=== PATIENT | female | born 2000 | race Caucasian/White ===

== ENCOUNTER → 2021-10-18 10:14 | Outpatient (CLI) | payer OTHER, SELFPAY ==
[2021-10-18 11:42] LABS: Appearance Urine UA CLEAR; Bilirubin Urine UA NEGATIVE (NEGATIVE); Color Urine UA YELLOW; Glucose Urine UA NEGATIVE (Negative); Ketones Urine UA NEGATIVE (NEGATIVE); Leukocyte Esterase Urine UA TRACE (NEGATIVE); Nitrite Urine UA NEGATIVE (Negative); Occult Blood Urine UA NEGATIVE (Negative); Protein Urine UA NEGATIVE (Negative); Urobilinogen Urine UA 0.2 E.U./dL (0.2)
[2021-10-18 11:44] LABS: pH Urine UA 6.5 (4.5-8.0)
[2021-10-18 11:47] LABS: Bacteria Urine None Seen; RBC Urine 0-1/HPF (0-5/HPF); Squamous Epithelial Cell Urine 1-5 /HPF (0-5/HPF); WBC Urine 1-5/HPF (0-5/HPF)
[2021-10-18 12:11] LABS: Add Manual Diff / Slide Review NO; Basophils Absolute Auto 0 /uL (0-100); Basophils Percent Auto 0.3 % (0-2); Eosinophils Absolute Auto 0 /uL (0-450); Eosinophils Percent Auto 0.7 % (2-4); Hematocrit 36.4 % (36-46); Hemoglobin 12.4 g/dL (12.0-16.0); Lymphocytes Absolute Auto 1600 /uL (1100-4500); Lymphocytes Percent Auto 26.7 % (25-40); Mean Corpuscular HGB Conc 34.1 % (30-36); Mean Corpuscular Hemoglobin 29.2 PG (26-34); Mean Corpuscular Volume 85.7 fL (80-100); Monocytes Absolute Auto 400 /uL (0-900); Monocytes Percent Auto 7.5 % (3-14); Neutrophils Absolute Auto 3900 /uL (1500-7000); Neutrophils Percent Auto 64.8 % (50-75); Platelet Count 216 X10^3/uL (150-400); Red Blood Cell Count 4.24 X10^6/uL (4.0-5.2)
[2021-10-18 13:10] LABS: Urine N gonorrhoeae NOT DETECTED
[2021-10-18 13:18] LABS: Urine Chlamydia NOT DETECTED
[2021-10-18 14:59] LABS: Urine N gonorrhoeae NOT DETECTED
[2021-10-18 16:13] LABS: Hepatitis B Surface Antigen NEGATIVE s/c (NEGATIVE); Rubella Antibody IgG 22.9 IU/mL (>15)
[2021-10-18 16:22] LABS: HIV 1 & 2 Ab/Ag 4th Gen Combo NEGATIVE (NEGATIVE); Hep C Virus Ab w/Reflex Quant NEGATIVE s/c (NEGATIVE)
[2021-10-18 16:42] LABS: Urine Chlamydia NOT DETECTED
[2021-10-19 04:51] LABS: RPR Screen Non Reactive (Non Reactive)
[2021-10-19 07:36] LABS: Varicella IgG Antibody 1168 index (Immune >165)
== END ==
PROVIDERS: Referring Provider Family Medicine; Visit Provider Family Medicine
DX: Z34.91 Encounter for supervision of normal pregnancy, unspecified, first trimester (principal); Z11.3 Encounter for screening for infections with a predominantly sexual mode of transmission; Z11.8 Encounter for screening for other infectious and parasitic diseases; Z3A.11 11 weeks gestation of pregnancy
CPT/HCPCS: 36415; 80055; 81003; 81015; 86787; 86803; 86850; 86900; 86901; 87086; 87389; 87491; 87591

== ENCOUNTER → 2021-11-12 11:05 | Outpatient (CLI) | payer OTHER, SELFPAY ==
[2021-11-12 14:42] LABS: Appearance Urine UA CLEAR; Bilirubin Urine UA NEGATIVE (NEGATIVE); Color Urine UA YELLOW; Glucose Urine UA NEGATIVE (Negative); Ketones Urine UA NEGATIVE (NEGATIVE); Leukocyte Esterase Urine UA TRACE (NEGATIVE); Nitrite Urine UA NEGATIVE (Negative); Occult Blood Urine UA NEGATIVE (Negative); Protein Urine UA NEGATIVE (Negative); Specific Gravity Urine UA <=1.005 (1.000-1.035); Urobilinogen Urine UA 0.2 E.U./dL (0.2)
[2021-11-12 14:50] LABS: pH Urine UA 6.5 (4.5-8.0)
[2021-11-12 14:51] LABS: Bacteria Urine Moderate (10-30); RBC Urine None Seen (0-5/HPF); Squamous Epithelial Cell Urine 1-5 /HPF (0-5/HPF); WBC Urine 0-1/HPF (0-5/HPF)
== END ==
PROVIDERS: Visit Provider Family Medicine
DX: N39.0 Urinary tract infection, site not specified (principal)
CPT/HCPCS: 81001; 87086

== ENCOUNTER → 2021-11-23 09:10 | Outpatient (CLI) | payer OTHER, SELFPAY ==
[2021-11-23 09:34] LABS: Appearance Urine UA CLEAR; Bilirubin Urine UA NEGATIVE (NEGATIVE); Color Urine UA YELLOW; Glucose Urine UA NEGATIVE (Negative); Ketones Urine UA NEGATIVE (NEGATIVE); Leukocyte Esterase Urine UA NEGATIVE (NEGATIVE); Nitrite Urine UA NEGATIVE (Negative); Occult Blood Urine UA NEGATIVE (Negative); Protein Urine UA NEGATIVE (Negative); Specific Gravity Urine UA <=1.005 (1.000-1.035); Urobilinogen Urine UA 0.2 E.U./dL (0.2)
[2021-11-23 09:37] LABS: pH Urine UA 7.5 (4.5-8.0)
[2021-11-23 09:55] LABS: Amorphous Sediment Urine 1+; Bacteria Urine Few (2-10); Culture Indicated Urine Specimen Cultured; RBC Urine None Seen (0-5/HPF); Squamous Epithelial Cell Urine 1-5 /HPF (0-5/HPF); WBC Urine 1-5/HPF (0-5/HPF)
== END ==
PROVIDERS: PCP Student in an Organized Health Care Education/Training Program; Referring Provider Family Medicine; Visit Provider Family Medicine
DX: Z34.01 Encounter for supervision of normal first pregnancy, first trimester (principal)
CPT/HCPCS: 81001; 87086

== ENCOUNTER → 2021-12-20 11:54 | Outpatient (CLI) | payer OTHER, SELFPAY ==
--- NOTE | 2021-12-20 11:55 | DI.US.S_ITS ---
PROCEDURE: US OB >= 14 WEEKS FETUS INDICATIONS: ANATOMY OUTSIDE/PRIOR DATING DATA: Last menstrual period (LMP): 08/02/2021. LMP-based estimated date of delivery (SUKHWINDER): 05/09/2022. First dating scan (date and location): 12/20/2021. Estimated date of delivery (SUKHWINDER) from first dating scan: 05/05/2022. TECHNIQUE: Real-time scanning was performed of the fetus, with image documentation and biometric measurements. Endovaginal scanning: No COMPARISON: None. FINDINGS: General: A single living intrauterine gestation is present. Presentation: Breech. Placenta: Placental position is anterior , without previa. Amniotic fluid index: 10.9 cm, normal range is 5-24 cm. heart rate: 153 beats per minute. Maternal cervical canal: 3.8 cm long. Normal lower limit is 2.5 cm. biometrics: Biparietal diameter: 49 mm; 20 weeks 3 days Head circumference: 187 mm; 21 weeks 0 days Abdominal circumference: 152 mm; 20 weeks 3 days Femur length: 31 mm; 19 weeks 5 days Clinically estimated gestational age: Not applicable Composite gestational age from present scan: 20 weeks 4 days Estimated weight and percentile: 341 g, which is at the 59th percentile for gestational age Anatomic survey: Neuro: Ventricles are non-dilated at less than 10 mm. Cisterna magna is normal at 3-11 mm. Cerebellum is normal in size and morphology. Nuchal skin fold: Normal at less than 6 mm between 14-21 weeks gestational age. Face: Nose and lips, facial profile are normal. Spine: No evidence for spina bifida. Heart: 4-chambered heart is present, with normal ventricular outflow tracts. Diaphragm: Diaphragm is intact. Stomach: Left-sided stomach is present. Kidneys: No hydronephrosis. Normal is less than 5 mm in 2nd trimester, less than 7 mm in 3rd trimester. Cord: 3-vessel cord has orthotopic insertion. Bladder: Normal in size. Extremities: All 4 extremities identified. IMPRESSION: 1. Single living intrauterine gestation. 2. Normal survey of anatomy. We strive to produce accurate, complete, and clear reports of imaging services. To assist us in improving patient care, this report was composed using standard report templates and voice recognition software. Therefore, it may contain abnormal punctuation, insertions and/or omissions. Occasional wrong-word or sound-alike substitutions may occur. Though we review the report and make efforts to correct it, we do recommend that the report be read carefully in proper context to recognize any text inaccuracies. Dictated by: Renetta Thomas M.D. on 12/20/2021 at 15:42 Transcribed by: KOLE on 12/20/2021 at 15:44 Approved by: Renetta Thomas M.D. on 12/20/2021 at 16:30
[2021-12-28 20:07] LABS: AFP, Serum 59.2 ng/mL (.); Estriol, Free 1.43 ng/mL (.); Inhibin A, Dimeric 304.66 pg/mL (.); Inhibin A, MoM 1.55 (.); Maternal Ethnicity Other (.); Maternal Weight 129 lbs (.); Number of Fetuses No (.); OSBR Risk 1 IN 10000 (.); Results Report (.); Test Results *Screen Negative* (.); hCG, MoM 2.52 (.); hCG, Serum 72797 mIU/mL (.)
== END ==
PROVIDERS: PCP Student in an Organized Health Care Education/Training Program; Referring Provider Family Medicine; Visit Provider Family Medicine
DX: O23.42 Unspecified infection of urinary tract in pregnancy, second trimester (principal); N39.0 Urinary tract infection, site not specified; Z3A.20 20 weeks gestation of pregnancy
CPT/HCPCS: 36415; 76811; 82105; 82677; 84702; 86336; 87077; 87086

== ENCOUNTER → 2021-12-20 14:03 | Outpatient (CLI) | payer OTHER, SELFPAY | PROVIDERS: PCP Student in an Organized Health Care Education/Training Program; Visit Provider Family Medicine | DX: N39.0 Urinary tract infection, site not specified (principal) | CPT/HCPCS: 87077; 87086 ==

== ENCOUNTER → 2022-02-16 08:31 | Outpatient (CLI) | payer OTHER, SELFPAY ==
[2022-02-16 11:04] LABS: Hematocrit 32.2 % (36-46); Hemoglobin 11.3 g/dL (12.0-16.0)
[2022-02-16 11:40] LABS: GTT (PREG) 1 Hour PP 50gm Dose 91 mg/dL (76-139)
== END ==
PROVIDERS: PCP Student in an Organized Health Care Education/Training Program; Referring Provider Family Medicine; Visit Provider Family Medicine
DX: Z34.92 Encounter for supervision of normal pregnancy, unspecified, second trimester (principal); Z3A.24 24 weeks gestation of pregnancy
CPT/HCPCS: 36415; 82950; 85014; 85018; 86850

== ENCOUNTER → 2022-02-28 13:37 | Outpatient (CLI) | payer OTHER, SELFPAY | PROVIDERS: PCP Student in an Organized Health Care Education/Training Program; Visit Provider Family Medicine | DX: N89.8 Other specified noninflammatory disorders of vagina (principal) | CPT/HCPCS: 87210 ==

== ENCOUNTER 2022-03-17 09:30 | Emergency (ER) | payer OTHER, SELFPAY ==
[2022-03-17] VITALS (11 sets, daily range): BP systolic 111–139; BP diastolic 57–79; PULSE 76–104; RESP 15; TEMP 36.4; O2SAT 98–100; BMI 26.7
[2022-03-17 10:00] LABS: Add Manual Diff / Slide Review NO; Basophils Absolute Auto 0 /uL (0-100); Basophils Percent Auto 0.3 % (0-2); Eosinophils Absolute Auto 0 /uL (0-450); Eosinophils Percent Auto 0.7 % (2-4); Hematocrit 33.7 % (36-46); Hemoglobin 11.5 g/dL (12.0-16.0); Lymphocytes Absolute Auto 1600 /uL (1100-4500); Lymphocytes Percent Auto 22.2 % (25-40); Mean Corpuscular HGB Conc 34.1 % (30-36); Mean Corpuscular Hemoglobin 29.6 PG (26-34); Mean Corpuscular Volume 86.6 fL (80-100); Monocytes Absolute Auto 400 /uL (0-900); Monocytes Percent Auto 5.8 % (3-14); Neutrophils Absolute Auto 5200 /uL (1500-7000); Platelet Count 169 X10^3/uL (150-400); Red Blood Cell Count 3.89 X10^6/uL (4.0-5.2); Red Cell Distribution Width 12.6 % (11.6-14.8); White Blood Cell Count 7.4 X10^3/uL (4.5-11.0)
[2022-03-17 10:09] LABS: Alanine Aminotransferase 25 IU/L (<35); Albumin 3.6 g/dL (3.5-5.0); Alkaline Phosphatase 150 U/L (38-126); Aspartate Aminotransferase 31 IU/L (14-36); BUN Creatinine Ratio 12.2 (6-22); Bilirubin Total 0.3 mg/dL (0.2-1.3); Blood Urea Nitrogen 6 mg/dL (7-17); Calcium 8.8 mg/dL (8.4-10.2); Carbon Dioxide 21 mmol/L (22-32); Chloride 105 mmol/L (98-107); Estimated Glomerular Filt Rate > 60 mL/min (>60); Globulin 3.5 g/dL (1.7-4.1); Glucose 107 mg/dL (70-100); HEMOLYSIS < 15 (0-50); Lipase 124 U/L (23-300); Potassium 3.5 mmol/L (3.4-5.1); Sodium 136 mmol/L (137-145); Total Protein 7.1 g/dL (6.3-8.2)
--- NOTE | 2022-03-17 10:17 | ED.DIZZY ---
HPI - Dizziness General Chief Complaint: Dizziness Stated Complaint: Dizzy, light headed- 33 wks Time Seen by Provider: 03/17/22 09:52 Source: patient Mode of arrival: Ambulatory History of Present Illness HPI Narrative: Patient here with partner. Awoke this morning with lightheadedness. Had brief upper abdominal discomfort that resolved. heart tone 153. Patient expected due date is May 07. Patient is . Denies any recent illness. No fever chills cough cold congestion urinary complaints. No vomiting diarrhea. No black or bloody stools. Is on iron supplements and vitamins. Patient states has been maintaining steady diet. No decrease in oral intake. Patient states dizziness has improved. No headache. No altered mental status or confusion. Patient is slightly anxious. Related Data Home Medications Medication Instructions Recorded Confirmed prenat.vits,ophelia,lij-zmsg-[id number] 1 tab PO DAILY 10/11/21 03/14/22 Allergies Allergy/AdvReac Type Severity Reaction Status Date / Time latex Allergy Intermediate Rash Verified 03/17/22 09:37 adhesive AdvReac Intermediate Blister Verified 03/17/22 09:37 Review of Systems Review of Systems Narrative: GENERAL: Denies chills, fatigue, malaise, fever, sweats. HEENT: Denies sinus pain, ear pain, sore throat RESPIRATORY: Denies dyspnea, cough CARDIOVASCULAR: Denies chest pain, palpitations GASTROINTESTINAL: Denies nausea, vomiting, positive abdominal pain : Denies dysuria, frequency, hematuria MUSCULOSKELETAL: denies muscle or bony pain SKIN: Denies rash, skin lesions NEUROLOGIC: Denies weakness, numbness, positive dizziness ROS Unobtainable: All systems reviewed & are unremarkable except as noted in HPI and below Patient History Medical History Chlamydia (~2020) Concussion Surgical History Anesthesia [place] teeth extracted (~05/27/16) Family History Mother Uterine cancer Grandfather Cardiac aneurysm Grandmother Hypertension Social History marital status: unmarried,single number of children: 0 household members: none lives independently: Yes housing: apartment pets and animals: Yes education level: college (some college) occupational status: employed current occupational exposures/hazards: No special taylor needs: No travel history: over 6 months ago seatbelt use: always water heater temp set < 120 deg: No (Will check tonight and change if needed.) working smoke detector in home: Yes fire extinguisher in home: Yes carbon monox detector in home: Yes firearms in home: No do you feel safe at home: Yes Smoking Status: Former smoker Tobacco: How many years used: 2 Smokeless tobacco user: other (vape) second hand exposure: No alcohol intake: former substance use type: does not use during the past year weight has: remained stable well-balanced diet: about half the time daily servings fruits/ve or more times/day caffeine: No Type(s) of exercise: walking frequency: daily Smoking Status: Former smoker Exam Narrative Exam Narrative: GENERAL: in no distress, not toxic not dyspneic HEAD: Normocephalic. EYES: Pupils equal round No scleral icterus. [place] conjunctiva ENT: Mucous membranes moist. Moist tongue and oral mucosa NECK: Trachea midline. CARDIOVASCULAR: Regular rate and rhythm without murmurs RESPIRATORY: Clear to auscultation. Breath sounds equal bilaterally. No wheezes, rales, or rhonchi. GASTROINTESTINAL: Abdomen soft, non-tender, no peritoneal signs EXTREMITIES: No gross deformities. BACK: No flank tenderness. NEURO: AOx4. SKIN: Warm and dry PSYCH: Not anxious, is cooperative Initial Vital Signs Initial Vital Signs: Vital Signs Temperature 97.5 F L 03/17/22 09:34 Pulse Rate 95 H 03/17/22 09:34 Respiratory Rate 15 03/17/22 09:34 Blood Pressure 135/70 03/17/22 09:34 Pulse Oximetry 99 03/17/22 09:34 Oxygen Delivery Method 03/17/22 09:34 Course Course Course Narrative: No new issues during course of stay Orders Ordered: ED Orders 03/17/22 09:39 EKG-12 Lead Stat 03/17/22 09:49 Complete Blood Count AUTO DIFF Stat Comprehensive Metabolic Panel Stat Lipase Stat Discontinued Medications Sodium Chloride (Normal Saline 0.9%) 1,000 mls @ 1,000 mls/hr IV BOLUS ONE Stop: 03/17/22 11:15 Last Infusion: 03/17/22 11:47 Dose: 0 mls/hr Documented By: Admin: 03/17/22 10:39 Dose: 1,000 mls/hr Documented By: FELIPE Reevaluation(s) Reevaluation #1: Patient was dizzy on standing/orthostatics. Heart rate did elevate. No hypotension. Time: 10:59 Reevaluation #2: Reviewed results with patient. Agrees with treatment plan and NST testing. Return precautions reviewed with her Time: 11:18 Consultations Consultation #1: Spoke with patient's OBGYN, Dr. Mojica, labs are reassuring. At this time she would like patient to go to [facility] for NST monitoring. Patient can follow up in office with next scheduled appointment. She states patient is a very anxious person at baseline. Time: 11:18 Vital Signs Vital signs: Vital Signs - 8 hr 03/17/22 09:34 03/17/22 09:45 03/17/22 10:47 Temperature 97.5 F L Pulse Rate 95 H 104 H Pulse Rate [Orthostatic Lying] 76 Pulse Rate [Orthostatic Sitting] 81 Pulse Rate [Orthostatic Standing] 100 H Respiratory Rate 15 Blood Pressure 135/70 139/79 Blood Pressure [Orthostatic Lying] 111/65 Blood Pressure [Orthostatic Sitting] 115/74 Blood Pressure [Orthostatic Standing] 122/74 Pulse Oximetry 99 98 Oxygen Delivery Method Room Air Room Air 03/17/22 09:45 03/17/22 10:00 03/17/22 10:00 Temperature Pulse Rate 103 H 87 Pulse Rate [Orthostatic Lying] Pulse Rate [Orthostatic Sitting] Pulse Rate [Orthostatic Standing] Respiratory Rate Blood Pressure 120/67 Blood Pressure [Orthostatic Lying] Blood Pressure [Orthostatic Sitting] Blood Pressure [Orthostatic Standing] Pulse Oximetry 99 99 Oxygen Delivery Method 03/17/22 10:30 03/17/22 10:30 03/17/22 10:40 Temperature Pulse Rate 97 H 79 Pulse Rate [Orthostatic Lying] Pulse Rate [Orthostatic Sitting] Pulse Rate [Orthostatic Standing] Respiratory Rate Blood Pressure 118/73 Blood Pressure [Orthostatic Lying] Blood Pressure [Orthostatic Sitting] Blood Pressure [Orthostatic Standing] Pulse Oximetry 98 99 Oxygen Delivery Method 03/17/22 10:40 03/17/22 10:42 03/17/22 10:42 Temperature Pulse Rate 88 Pulse Rate [Orthostatic Lying] Pulse Rate [Orthostatic Sitting] Pulse Rate [Orthostatic Standing] Respiratory Rate Blood Pressure 111/65 115/74 Blood Pressure [Orthostatic Lying] Blood Pressure [Orthostatic Sitting] Blood Pressure [Orthostatic Standing] Pulse Oximetry 98 Oxygen Delivery Method 03/17/22 10:44 03/17/22 10:44 03/17/22 11:00 Temperature Pulse Rate 89 82 Pulse Rate [Orthostatic Lying] Pulse Rate [Orthostatic Sitting] Pulse Rate [Orthostatic Standing] Respiratory Rate Blood Pressure 122/74 Blood Pressure [Orthostatic Lying] Blood Pressure [Orthostatic Sitting] Blood Pressure [Orthostatic Standing] Pulse Oximetry 98 100 Oxygen Delivery Method 03/17/22 11:01 03/17/22 11:01 03/17/22 11:30 Temperature Pulse Rate 83 Pulse Rate [Orthostatic Lying] Pulse Rate [Orthostatic Sitting] Pulse Rate [Orthostatic Standing] Respiratory Rate Blood Pressure 114/57 L 121/61 Blood Pressure [Orthostatic Lying] Blood Pressure [Orthostatic Sitting] Blood Pressure [Orthostatic Standing] Pulse Oximetry 100 Oxygen Delivery Method 03/17/22 11:30 Temperature Pulse Rate 77 Pulse Rate [Orthostatic Lying] Pulse Rate [Orthostatic Sitting] Pulse Rate [Orthostatic Standing] Respiratory Rate Blood Pressure Blood Pressure [Orthostatic Lying] Blood Pressure [Orthostatic Sitting] Blood Pressure [Orthostatic Standing] Pulse Oximetry 100 Oxygen Delivery Method MDM - Dizziness Differential Diagnosis Differential diagnosis: Likely benign paroxysmal positional vertigo, orthostatic hypotension, acute vestibular neuronitis and other (Dehydration/anxiety/vertigo/anemia) Lab Data Result diagrams: 03/17/22 09:49 03/17/22 09:49 Labs: Lab Results 03/17/22 03/17/22 Range/Units 09:49 09:49 WBC 7.4 (4.5-11.0) X10^3/uL RBC 3.89 L (4.0-5.2) X10^6/uL Hgb 11.5 L (12.0-16.0) g/dL Hct 33.7 L (36-46) % MCV 86.6 (80-100) fL MCH 29.6 (26-34) PG MCHC 34.1 (30-36) % RDW 12.6 (11.6-14.8) % Plt Count 169 (150-400) X10^3/uL Neut % (Auto) 71.0 (50-75) % Lymph % (Auto) 22.2 L (25-40) % [place] % (Auto) 5.8 (3-14) % Eos % (Auto) 0.7 L (2-4) % Baso % (Auto) 0.3 (0-2) % Neut # (Auto) 5200 (3286-0736) /uL Lymph # (Auto) 1600 (6441-9284) /uL [place] # (Auto) 400 (0-900) /uL Eos # (Auto) 0 (0-450) /uL Baso # (Auto) 0 (0-100) /uL Sodium 136 L (137-145) mmol/L Potassium 3.5 (3.4-5.1) mmol/L Chloride 105 (98-107) mmol/L Carbon Dioxide 21 L (22-32) mmol/L BUN 6 L (7-17) mg/dL Creatinine 0.49 L (0.52-1.04) mg/dL Estimated GFR > 60 (>60) mL/min BUN/Creatinine Ratio 12.2 (6-22) Glucose 107 H (70-100) mg/dL Calcium 8.8 (8.4-10.2) mg/dL Total Bilirubin 0.3 (0.2-1.3) mg/dL AST 31 (14-36) IU/L ALT 25 (<35) IU/L Alkaline Phosphatase 150 H (38-126) U/L Total Protein 7.1 (6.3-8.2) g/dL Albumin 3.6 (3.5-5.0) g/dL Globulin 3.5 (1.7-4.1) g/dL Albumin/Globulin Ratio 1.0 (1.0-2.8) Lipase 124 (23-300) U/L Urine Dip Bedside Urine Glucose Negative Bedside Urine Bilirubin - Negative Bedside Urine Ketone - Negative Urine Specific [place] 1.005 Bedside Urine Occult Blood - Negative Bedside Urine pH 6.5 Bedside Urine Protein - Negative Bedside Urine Urobilinogen - Negative Bedside Urine Nitrite - Negative Bedside Urine Leukocytes - Negative Esterase ECG Data Interpretation: Normal sinus rhythm rate [address] elevation or depression MDM Narrative Medical decision making narrative: Appropriate for discharge home. Exam and laboratory studies are reassuring. I did review with Dr. Galina, OBGYN, patient's OBGYN, labs are reassuring. Agree with IV fluids. Return precautions reviewed patient. Patient is going to center now for NST testing. Discharge Plan Departure Patient Disposition: Home Clinical Impression: Dizziness Instructions: Orthostatic Hypotension, DI for Dizziness-Nonvertigo Activity Restrictions/Additional Instructions: Keep well hydrated. Please go to Center for further monitoring. We have spoken with Dr. Mojica, laboratory studies are reassuring. Please see her at next scheduled appointment. Return if worse if any questions or concerns Prescriptions: No Action prenat.vits,ophelia,[id number] Tablet 1 tab PO DAILY Referrals: Tami Esquivel MD [Primary Care Provider] - Visit Report Forms: Patient Portal/API
[2022-03-17] MEDS: SODIUM CHLORIDE 0.9% 1,000 ML 1000 ML IV (10:39)
== END 2022-03-17 11:50 | disposition home or self-care (01) ==
PROVIDERS: Emergency Provider Emergency Medicine; PCP Student in an Organized Health Care Education/Training Program
DX: O26.893 Other specified pregnancy related conditions, third trimester (principal); R42 Dizziness and giddiness; R10.9 Unspecified abdominal pain; Z3A.33 33 weeks gestation of pregnancy; O99.413 Diseases of the circulatory system complicating pregnancy, third trimester; Z3A.32 32 weeks gestation of pregnancy; R00.0 Tachycardia, unspecified
CPT/HCPCS: 36415; 59025; 80053; 81003; 83690; 85025; 93005; 96360; 99284; G0378; G0379

== ENCOUNTER 2022-03-17 12:05 | Outpatient (CLI) | payer OTHER, SELFPAY ==
--- NOTE | 2022-03-17 13:13 | PM.OBTRLD ---
Visit Information Visit Information Date of evaluation: 03/17/22 Primary OB Provider: Keyanna Mojica Reason for Evaluation: Yes non-stress test Vital Signs Vital Signs: Temperature 36.3? blood pressure 123/73 heart rate 60 PFSH Medical History Chlamydia (~2020) Concussion Surgical History Anesthesia [place] teeth extracted (~05/27/16) Family History Mother Uterine cancer Grandfather Cardiac aneurysm Grandmother Hypertension Social History marital status: unmarried,single number of children: 0 household members: none lives independently: Yes housing: apartment pets and animals: Yes education level: college (some college) occupational status: employed current occupational exposures/hazards: No special taylor needs: No travel history: over 6 months ago seatbelt use: always water heater temp set < 120 deg: No (Will check tonight and change if needed.) working smoke detector in home: Yes fire extinguisher in home: Yes carbon monox detector in home: Yes firearms in home: No do you feel safe at home: Yes Smoking Status: Former smoker Tobacco: How many years used: 2 Smokeless tobacco user: other (vape) second hand exposure: No alcohol intake: former substance use type: does not use during the past year weight has: remained stable well-balanced diet: about half the time daily servings fruits/ve or more times/day caffeine: No Type(s) of exercise: walking frequency: daily Evaluation Evaluation Baseline heart rate: 120 Variability: Moderate (11-25) monitor accelerations: Present Monitor Decelerations: Absent Category of Tracing: Reactive Diagnosis, Plan/Disposition Final Diagnosis (1) 32 weeks gestation of : Status: Acute (2) Dizziness: Status: Acute Plan/Disposition Plan: 22-year-old at 32 weeks' gestation here for NST after evaluation in the ER. She presented to the ER due to dizziness. Orthostatics were significant for tachycardia but no hypotension. Symptoms improved after IV fluids. Denies contractions, leaking or bleeding. Baby has been active. NST reactive. Follow-up as scheduled in clinic or return sooner if needed. OB Disposition: home
== END 2022-03-17 13:10 | disposition home or self-care (01) ==
LOC: LABOR 13:42 → OB 03-22 14:40
PROVIDERS: PCP Student in an Organized Health Care Education/Training Program; Referring Provider Specialist; Visit Provider Specialist
DX: O99.413 Diseases of the circulatory system complicating pregnancy, third trimester (principal); O26.893 Other specified pregnancy related conditions, third trimester; R00.0 Tachycardia, unspecified; R42 Dizziness and giddiness; Z3A.32 32 weeks gestation of pregnancy
CPT/HCPCS: 59025; G0378; G0379

== ENCOUNTER 2022-03-30 17:22 | Observation (INO) | payer OTHER, SELFPAY ==
--- NOTE | 2022-03-30 18:14 | P.HPOB_ITS ---
OB HPI Date/Time Date of admission: 03/30/22 Date Patient Seen: 03/30/22 Time Patient Seen: 18:00 History of Present Condition Chief complaint: nst SUKHWINDER Calculator Estimated Delivery Date Method Current WG Current Estimate 05/09/22 LMP (Certain) 34w 3d Other Estimates 05/07/22 Ultrasound #1 34w 5d Estimated Gestational Age (weeks): 34 : 1 Narrative: 22 yo presented after a fall which occurred at approximately 4:30 p.m.. she was in the park and a dog ran into her, knocking on both her legs and p atient fell hard on to her left hip. She feels sore in outer buttocks area of left hip. Also some mild back pain. Presented for Ob evaluation due to the fall. She is frequently feeling a sharp vulvar discomfort, intermittently. Not noticing any abdominal tightening. Her vulvar discomfort is correlating with contractions on the monitor. No cramping. Denies leakage of fluid or vaginal bleeding. Blood type is Rh negative. She received RhoGAM at 28 weeks. Dating criteria OB: LMP confirmed by 1st trimester US Obstetrical complications: none Medical complications OB: none Preadmission Labs Last OB Lab Results: Blood Type O Negative 10/18/21 10:39 Antibody Screen Negative 02/16/22 09:45 Hematocrit 30.0 % (36-46) L 03/30/22 23:00 Hemoglobin 10.1 g/dL (12.0-16.0) L 03/30/22 23:00 Hepatitis B Surface Antigen Negative s/c (NEGATIVE) 10/18/21 10 :39 Hepatitis C Antibody Negative s/c (NEGATIVE) 10/18/21 10:39 Rubella Antibody 22.9 IU/mL (>15) 10/18/21 10:39 Varicella-Zoster IgG Antibody 1168 index (Immune >165) 10/18/21 10:39 Glucose 1 Hour 91 mg/dL (76-139) 02/16/22 09:45 -: Chlamydia screen: negative and Gonorrhea screen: negative Genetic Screens: Quad screen: Normal Evaluation Evaluation Baseline heart rate: 135 Variability: Moderate (11-25) monitor accelerations: Present Monitor Decelerations: Absent Contraction Frequency (minutes): 3 Uterine Contraction Intensity: Mild Category of Tracing: Reactive Status: Category l Dilation (cm): 0 Effacement (%): 0 Comments: cervix ftp/long PFSH Medical History Chlamydia (~2020) Concussion Surgical History Anesthesia [place] teeth extracted (~05/27/16) Family History Mother Uterine cancer Grandfather Cardiac aneurysm Grandmother Hypertension Social History marital status: unmarried,single number of children: 0 household members: none lives independently: Yes housing: apartment pets and animals: Yes education level: college (some college) occupational status: employed current occupational exposures/hazards: No special taylor needs: No travel history: over 6 months ago seatbelt use: always water heater temp set < 120 deg: No (Will check tonight and change if needed.) working smoke detector in home: Yes fire extinguisher in home: Yes carbon monox detector in home: Yes firearms in home: No do you feel safe at home: Yes Smoking Status: Former smoker Tobacco: How many years used: 2 Smokeless tobacco user: other (vape) second hand exposure: No alcohol intake: former substance use type: does not use during the past year weight has: remained stable well-balanced diet: about half the time daily servings fruits/ve or more times/day caffeine: No Type(s) of exercise: walking frequency: daily Meds Home Medications and Allergies Home Medications Medication Instructions Recorded Confirmed Type prenat.vits,ophelia,vxc-guem-petxe 1 tab PO DAILY 10/11/21 03/28/22 History Allergies Allergy/AdvReac Type Severity Reaction Status Date / Time latex Allergy Intermediate Rash Verified 03/28/22 14:27 adhesive AdvReac Intermediate Blister Verified 03/28/22 14:27 OB Exam Narrative Exam Narrative: General: Well-appearing female in no acute distress. feeling vulvar / vaginal discomfort with contractions Abdomen gravid, nontender Extremities no edema Objective Labs Result Diagrams: 03/30/22 23:00 Labs: urinalysis negative except for trace leukocytes CBC from today pending. Yonas Anderson sent but lab here is a send out Assessment and Plan Assessment and Plan Assessment and Plan narrative: 22 yoG1 @ 34wk2d with persistent frequent contractions every 2-3 minutes for past 4 hours, now over 5 hours after the fall. Cervix is unchanged repeat exam at 6:00 p.m. fingertip/long, re-check 2 hours later unchanged. -IV placed for IV access. She had been p.o. hydrating well herself, brings in a water bottle but she was sent in addition IV hydrated 250 mL/hr x1 L. - Urinalysis sent, negative - contractions have persisted, despite IV hydration. Will observe her for 24 hours due to frequent contractions persisting after her fall, with risk of abruption status post fall. - CBC sent. Yonas Anderson sent this is a send out. Without information of the KB, will go ahead and give an additional dose RhoGAM due to the heart fall and currently denae.
[2022-03-30 19:26] LABS: Appearance Urine UA CLEAR; Bilirubin Urine UA NEGATIVE (NEGATIVE); Color Urine UA YELLOW; Glucose Urine UA NEGATIVE (Negative); Ketones Urine UA NEGATIVE (NEGATIVE); Leukocyte Esterase Urine UA TRACE (NEGATIVE); Nitrite Urine UA NEGATIVE (Negative); Occult Blood Urine UA NEGATIVE (Negative); Protein Urine UA NEGATIVE (Negative); Specific Gravity Urine UA <=1.005 (1.000-1.035); Urobilinogen Urine UA 0.2 E.U./dL (0.2)
--- NOTE | 2022-03-30 20:02 | DI.US.S_ITS ---
PROCEDURE: US OB LIMITED INDICATIONS: S/P FALL OUTSIDE/PRIOR DATING DATA: Last menstrual period (LMP): 08/02/2021 LMP-based estimated date of delivery (SUKHWINDER): 05/09/2022. First dating scan (date and location): 12/20/2021 Estimated date of delivery (SUKHWINDER) from first dating scan: 05/05/2022 The calculations are made using the study derived SUKHWINDER of 05/05/2022. TECHNIQUE: Real-time scanning was performed of the fetus, with image documentation and biometric measurements. Endovaginal scanning: Not indicated COMPARISON: [facility], OB >= 14 WEEKS FETUS, 12/20/2021, 12:22. FINDINGS: General: A single living intrauterine gestation is present. Presentation: Vertex Placenta: Placental position is anterior, without previa. Amniotic fluid index: 6.8 cm, normal range is 5-24 cm. Single deepest vertical pocket is 4.5 cm. heart rate: 128 beats per minute. Maternal cervical canal: Not well seen. Clinically estimated gestational age: 34 weeks, 6 days. Other: Not applicable. IMPRESSION: 1. Single live intrauterine gestation with fetus in vertex presentation. heart rate is 128 beats per minute. Normal amount of amniotic fluid. 2. Placenta location is anterior, no placenta previa. No evidence of abruption. We strive to produce accurate, complete, and clear reports of imaging services. To assist us in improving patient care, this report was composed using standard report templates and voice recognition software. Therefore, it may contain abnormal punctuation, insertions and/or omissions. Occasional wrong-word or sound-alike substitutions may occur. Though we review the report and make efforts to correct it, we do recommend that the report be read carefully in proper context to recognize any text inaccuracies. Dictated by: Demetrio Billings M.D. on 03/30/2022 at 21:18 Approved by: Demetrio Billings M.D. on 03/30/2022 at 21:21
[2022-03-30 20:14] LABS: RBC Urine None Seen (0-5/HPF); Squamous Epithelial Cell Urine 5-10 /HPF (0-5/HPF); WBC Urine 0-1/HPF (0-5/HPF)
[2022-03-30 20:15] LABS: Bacteria Urine None Seen; Culture Indicated Urine Specimen Cultured; pH Urine UA 7.5 (4.5-8.0)
[2022-03-31 01:18] LABS: Add Manual Diff / Slide Review NO; Basophils Absolute Auto 0 /uL (0-100); Basophils Percent Auto 0.6 % (0-2); Eosinophils Absolute Auto 0 /uL (0-450); Eosinophils Percent Auto 0.5 % (2-4); Hemoglobin 10.1 g/dL (12.0-16.0); Lymphocytes Absolute Auto 2200 /uL (1100-4500); Lymphocytes Percent Auto 27.2 % (25-40); Mean Corpuscular HGB Conc 33.8 % (30-36); Mean Corpuscular Hemoglobin 29.4 PG (26-34); Mean Corpuscular Volume 87.1 fL (80-100); Monocytes Absolute Auto 600 /uL (0-900); Monocytes Percent Auto 7.1 % (3-14); Neutrophils Absolute Auto 5300 /uL (1500-7000); Neutrophils Percent Auto 64.6 % (50-75); Platelet Count 156 X10^3/uL (150-400); Red Blood Cell Count 3.44 X10^6/uL (4.0-5.2); Red Cell Distribution Width 12.7 % (11.6-14.8); White Blood Cell Count 8.1 X10^3/uL (4.5-11.0)
[2022-03-31] MEDS: RHO(D) IMMUNE GLOBULIN 1,500 UNIT SYRINGE 1500 UNIT IM (08:04)
--- NOTE | 2022-03-31 08:16 | P.DS_ITS ---
Discharge Providers Provider Date of admission: 03/30/22 17: Discharge Date: 03/31/22 Primary care physician: Tami Esquivel MD Discharge provider: Keyanna Mojica DO Summary Hospital Course Date Patient Seen: 03/31/22 Time Patient Seen: 07:50 Diagnoses: Fall during contractions Hospital Course: Patient is a 22-year-old at 34 weeks and 3 days gestation admitted overnight due to contractions after a fall. Yesterday she was at the [employer] when her friend's dog hit the back of her legs, causing her to fall on her left side. She did not have any leaking, bleeding or contractions at the time but was advised to come in to the center for monitoring. She was found to be denae when placed on the monitor though denied painful contractions. She was feeling some pain inside her vagina which correlated to the contractions on the monitor. Cervical exam was fingertip and long and unchanged several hours later. Ultrasound was reassuring against abruption though significant for ELVA of 6.8. She was given RhoGAM due to Rh negative status as a precaution though no evidence of bleeding. She also received IV fluids. Hospital course overnight was uncomplicated. She stopped feeling contractions at approximately 8:00 p.m. and denies feeling contractions this morning. She is very eager to go home. Baby is active. She is done working at this time and will be off the remainder of the . Advised patient to hydrate well. She may discharge home and keep activities light though does not need bedrest. She will not go to the [email or web address] billings. She will follow-up in the center on 04/04/22 for repeat NST and ELVA given borderline ELVA. She is well aware to return to the center for cramping, bleeding, decreased movement or pain. Discharge Diagnosis (1) 34 weeks gestation of : Status: Acute (2) contractions: Status: Acute Status at Discharge Cognitive/behavioral status at discharge: at baseline, oriented Functional status at discharge: independent ambulation Overall status at discharge: patient is back to baseline Time Spent with Patient Time attestation: Total time spent providing and/or coordinating discharge services: Time spent: Less than 30 minutes Objective Labs Result Diagrams: 03/30/22 23:00 Labs: Laboratory Results - last 24 hr 03/30/22 03/30/22 03/30/22 17:25 23:00 23:00 WBC 8.1 RBC 3.44 L Hgb 10.1 L Hct 30.0 L MCV 87.1 MCH 29.4 MCHC 33.8 RDW 12.7 Plt Count 156 Neut % (Auto) 64.6 Lymph % (Auto) 27.2 Eagle % (Auto) 7.1 Eos % (Auto) 0.5 L Baso % (Auto) 0.6 Neut # (Auto) 5300 Lymph # (Auto) 2200 Eagle # (Auto) 600 Eos # (Auto) 0 Baso # (Auto) 0 Urine Color Yellow Urine Appearance Clear Urine pH 7.5 Ur Specific [place] <=1.005 Urine Protein Negative Urine Glucose (UA) Negative Urine Ketones Negative Urine Occult Blood Negative Urine Nitrate Negative Urine Bilirubin Negative Urine Urobilinogen 0.2 Ur Leukocyte Esterase Trace H Urine RBC None seen Urine WBC 0-1/hpf Ur Squamous Epith Cells 5-10 /hpf H Urine Bacteria None seen Ur Culture Indicated? Specimen cultured Blood Type O Negative Antibody Screen Negative Exam Vital Signs (past 8 hours): Temperature 36.3? blood pressure 114/66 heart rate 76 Const General: healthy appearing and comfortable [facility] Head: normal to inspection Nose: external nose normal Mouth: oral mucosae normal Eyes General: appearance normal, both eyes and all related structures Chest Chest: normal inspection of the chest Resp Effort & Inspection: normal respiratory effort Extrem General: normal to inspection and No edema Discharge Plan Discharge Plan Patient Disposition: Home Discharge orders & Medications Prescriptions: Continued prenat.vits,ophelia,[id number] Tablet 1 tab PO DAILY Follow up/Referrals: Tami Esquivel MD [Primary Care Provider] - Visit Report/Discharge Packet Visit Report Forms: Patient Portal/API, Stroke Signs & Symptoms Discharge Data Primary Care Provider: Tami Esquivel Attending Provider: Yvonne Reynolds Admit Date/Time: 03/30/22 17:22 Discharges patient from system. Discharge Date/Time: 03/31/22 08:10
== END 2022-03-31 08:10 | disposition home or self-care (01) ==
PROVIDERS: Admitting Provider Obstetrics & Gynecology; PCP Student in an Organized Health Care Education/Training Program; Referring Provider Obstetrics & Gynecology; Visit Provider Obstetrics & Gynecology
DX: O47.03 False labor before 37 completed weeks of gestation, third trimester (principal); O26.893 Other specified pregnancy related conditions, third trimester; W18.30XA Fall on same level, unspecified, initial encounter; Z3A.34 34 weeks gestation of pregnancy
CPT/HCPCS: 59050; 76815; 81001; 85025; 86850; 86900; 86901; 87086; 96360; 96372; G0378; G0379; J2790

== ENCOUNTER 2022-04-04 10:04 | Outpatient (CLI) | payer OTHER, SELFPAY ==
--- NOTE | 2022-04-04 10:27 | DI.US.S_ITS ---
PROCEDURE: US OB LIMITED INDICATIONS: ELVA, growth OUTSIDE/PRIOR DATING DATA: Last menstrual period (LMP): 08/02/2021. LMP-based estimated date of delivery (SUKHWINDER): 05/09/2022. First dating scan (date and location): 12/20/2021. The calculations are made using the SUKHWINDER of 05/05/2022. TECHNIQUE: Real-time scanning was performed of the fetus, with image documentation. Endovaginal scanning: Not performed COMPARISON: None. FINDINGS: A single living intrauterine gestation is present. Presentation: Vertex. Placenta: Placental position is anterior, without previa. Amniotic fluid index: 11.8 cm, normal range is 5-24 cm. Single deepest vertical pocket is 3.5 cm. heart rate: 136 beats per minute. Estimated gestational age from current study: 35 weeks 1 day Estimated gestational age from initial ultrasound: 35 weeks 1 day. Estimated weight: 2412 grams, 19th percentile. IMPRESSION: Single living intrauterine gestation. Normal interval growth. Size concordant with dates. Normal ELVA. Dictated by: Bob Alonzo M.D. on 04/04/2022 at 14:17 Approved by: Bob Alonzo M.D. on 04/04/2022 at 14:18
--- NOTE | 2022-04-04 11:46 | PM.OBTRLD ---
Visit Information Visit Information Date of evaluation: 04/04/22 Primary OB Provider: Keyanna Mojica Reason for Evaluation: Yes non-stress test Comments/Additional reasons for admission: 22-year-old at 35 weeks gestation here for NST after contractions last week and ELVA of 6.8. Vital Signs Vital Signs: T 97.5? blood pressure 113/59 heart rate 86 respirations 18 PFSH Medical History Chlamydia (~2020) Concussion Surgical History Anesthesia [place] teeth extracted (~05/27/16) Family History Mother Uterine cancer Grandfather Cardiac aneurysm Grandmother Hypertension Social History marital status: unmarried,single number of children: 0 household members: none lives independently: Yes housing: apartment pets and animals: Yes education level: college (some college) occupational status: employed current occupational exposures/hazards: No special taylor needs: No travel history: over 6 months ago seatbelt use: always water heater temp set < 120 deg: No (Will check tonight and change if needed.) working smoke detector in home: Yes fire extinguisher in home: Yes carbon monox detector in home: Yes firearms in home: No do you feel safe at home: Yes Smoking Status: Former smoker Tobacco: How many years used: 2 Smokeless tobacco user: other (vape) second hand exposure: No alcohol intake: former substance use type: does not use during the past year weight has: remained stable well-balanced diet: about half the time daily servings fruits/ve or more times/day caffeine: No Type(s) of exercise: walking frequency: daily Evaluation Evaluation Baseline heart rate: 120 Variability: Moderate (11-25) monitor accelerations: Present Monitor Decelerations: Absent Category of Tracing: Reactive Diagnosis, Plan/Disposition Final Diagnosis (1) 35 weeks gestation of : Status: Acute Plan/Disposition Plan: Year old at 35 weeks gestation. NST reactive. There were periods marked variability which settled to baseline. No decelerations. ELVA was 11.8 and estimated weight at the nineteenth percentile. Follow-up in clinic as scheduled or return sooner if needed. OB Disposition: home
== END 2022-04-04 11:57 | disposition home or self-care (01) ==
LOC: LABOR 10:16 → OB 04-05 10:33
PROVIDERS: PCP Student in an Organized Health Care Education/Training Program; Referring Provider Family Medicine; Visit Provider Family Medicine
DX: O47.03 False labor before 37 completed weeks of gestation, third trimester (principal); Z3A.35 35 weeks gestation of pregnancy
CPT/HCPCS: 59025; 76815; G0378; G0379

== ENCOUNTER → 2022-04-11 13:43 | Outpatient (CLI) | payer OTHER, SELFPAY ==
[2022-04-12 11:06] LABS: Strep Grp B PCR NEG for Grp B Strep
== END ==
PROVIDERS: PCP Student in an Organized Health Care Education/Training Program; Visit Provider Family Medicine
DX: Z34.93 Encounter for supervision of normal pregnancy, unspecified, third trimester (principal); Z3A.36 36 weeks gestation of pregnancy
CPT/HCPCS: 87653

== ENCOUNTER 2022-04-27 02:34 | Inpatient (IN) | payer OTHER, SELFPAY ==
[2022-04-27 03:56] LABS: Add Manual Diff / Slide Review NO; Basophils Absolute Auto 0 /uL (0-100); Basophils Percent Auto 0.6 % (0-2); Eosinophils Absolute Auto 0 /uL (0-450); Eosinophils Percent Auto 0.5 % (2-4); Hematocrit 34.5 % (36-46); Hemoglobin 11.5 g/dL (12.0-16.0); Lymphocytes Absolute Auto 2000 /uL (1100-4500); Lymphocytes Percent Auto 25.8 % (25-40); Mean Corpuscular HGB Conc 33.4 % (30-36); Mean Corpuscular Hemoglobin 28.6 PG (26-34); Mean Corpuscular Volume 85.6 fL (80-100); Monocytes Absolute Auto 700 /uL (0-900); Monocytes Percent Auto 8.4 % (3-14); Neutrophils Absolute Auto 5100 /uL (1500-7000); Neutrophils Percent Auto 64.7 % (50-75); Platelet Count 187 X10^3/uL (150-400); Red Blood Cell Count 4.03 X10^6/uL (4.0-5.2); White Blood Cell Count 7.9 X10^3/uL (4.5-11.0)
[2022-04-27 03:58] VITALS: BP 134/89
[2022-04-27 04:06] LABS: COVID19 -Nasal RAPID Negative (Negative)
--- NOTE | 2022-04-27 07:13 | P.HPOB_ITS ---
OB HPI Date/Time Date of admission: 04/27/22 Date Patient Seen: 04/27/22 Time Patient Seen: 07:30 History of Present Condition Chief complaint: Labor SUKHWINDER Calculator Estimated Delivery Date Method Current WG Current Estimate 05/09/22 LMP (Certain) 38w 2d Other Estimates 05/07/22 Ultrasound #1 38w 4d Estimated Gestational Age (weeks): 38w2d : 1 Para: 0 Narrative: 22-year-old at 38 weeks and 2 days gestation presenting after rupture of membranes at home at approximately 1:30 a.m. with clear fluid. She has been denae intermittently though states contractions are less painful than [place] Arzola contractions. She was able to nap for a couple hours this morning. Baby has been active. has been uncomplicated. She was admitted for observation at 34 weeks after a fall. Workup was reassuring and she was discharged home. She is Rh negative and received RhoGAM this . care: good care, initiated at week # (11), number of visits (11) and pounds weight gain (52) Dating criteria OB: LMP confirmed by 1st trimester US Ultrasounds: normal 1st trimester US and normal mid trimester US Obstetrical complications: none Medical complications OB: none Preadmission Labs Last OB Lab Results: Blood Type O Negative 04/27/22 03:35 Antibody Screen Negative 04/27/22 03:35 Hematocrit 34.5 % (36-46) L 04/27/22 03:35 Hemoglobin 11.5 g/dL (12.0-16.0) L 04/27/22 03:35 Hepatitis B Surface Antigen Negative s/c (NEGATIVE) 10/18/21 10 :39 Hepatitis C Antibody Negative s/c (NEGATIVE) 10/18/21 10:39 Rubella Antibody 22.9 IU/mL (>15) 10/18/21 10:39 Varicella-Zoster IgG Antibody 1168 index (Immune >165) 10/18/21 10:39 Glucose 1 Hour 91 mg/dL (76-139) 02/16/22 09:45 Group B Streptococcus (PCR) Neg for grp b strep 04/11/22 13:43 -: Chlamydia screen: negative, Gonorrhea screen: negative and Urine: positive (Negative test of cure) Genetic Screens: Quad screen: Normal External Labs -: Urine: positive (Negative test of cure) Evaluation Evaluation Baseline heart rate: 130 Variability: Moderate (11-25) monitor accelerations: Present Monitor Decelerations: Absent Contraction Frequency (minutes): 5 Uterine Contraction Intensity: Mild Category of Tracing: Reactive Status: Category l Dilation (cm): 2 Effacement (%): 80 Dilation: 1-2 cm Effacement: >/=80% station: -2 Position of cervix: mid Consistency: soft Bejarano score: 8 Non-invasive Membranes Rupture Test: positive PFSH Medical History Chlamydia (~2020) Concussion Surgical History Anesthesia [place] teeth extracted (~05/27/16) Family History Mother Uterine cancer Grandfather Cardiac aneurysm Grandmother Hypertension Social History marital status: unmarried,single number of children: 0 household members: none lives independently: Yes housing: apartment pets and animals: Yes education level: college (some college) occupational status: employed current occupational exposures/hazards: No special taylor needs: No travel history: over 6 months ago seatbelt use: always water heater temp set < 120 deg: No (Will check tonight and change if needed.) working smoke detector in home: Yes fire extinguisher in home: Yes carbon monox detector in home: Yes firearms in home: No do you feel safe at home: Yes Smoking Status: Former smoker Tobacco: How many years used: 2 Smokeless tobacco user: other (vape) second hand exposure: No alcohol intake: former substance use type: does not use during the past year weight has: remained stable well-balanced diet: about half the time daily servings fruits/ve or more times/day caffeine: No Type(s) of exercise: walking frequency: daily Meds Home Medications and Allergies Home Medications Medication Instructions Recorded Confirmed Type prenat.vits,ophelia,wdz-[id number]-[id number] 1 tab PO DAILY 10/11/21 04/27/22 History Allergies Allergy/AdvReac Type Severity Reaction Status Date / Time latex Allergy Intermediate Rash Verified 04/18/22 13:21 adhesive AdvReac Intermediate Blister Verified 04/18/22 13:21 OB Exam Narrative Exam Narrative: Temperature 36.3? blood pressure 124/86 heart rate 89 HENMT Head: normal to inspection Mouth: oral mucosae normal Eyes General: appearance normal, both eyes and all related structures Resp Effort & Inspection: normal respiratory effort Auscultation: clear to auscultation bilaterally Cardio Rate: regular rate Rhythm: regular rhythm Extremities Lower extremity: Yes normal to inspection; No edema Presentation: vertex Estimated Weight (lbs): 6 Amniotic Fluid: clear Objective Labs Result Diagrams: 04/27/22 03:35 Labs: Laboratory Results - last 24 hr 04/27/22 04/27/22 04/27/22 03:35 03:35 03:40 WBC 7.9 RBC 4.03 Hgb 11.5 L Hct 34.5 L MCV 85.6 MCH 28.6 MCHC 33.4 RDW 13.0 Plt Count 187 Neut % (Auto) 64.7 Lymph % (Auto) 25.8 Lee % (Auto) 8.4 Eos % (Auto) 0.5 L Baso % (Auto) 0.6 Neut # (Auto) 5100 Lymph # (Auto) 2000 Lee # (Auto) 700 Eos # (Auto) 0 Baso # (Auto) 0 SARS-CoV-2 (PCR) Negative Blood Type O Negative Antibody Screen Negative Assessment and Plan Assessment and Plan Assessment and Plan narrative: 22-year-old at 38 weeks and 2 days gestation with spontaneous rupture membranes this morning at 1:30 a.m. with clear fluid. She is denae though not yet in active labor. GBS negative. Explained increased risk of infection with expectant verses augmentation of labor with Pitocin. She would like to proceed with pitocin. Plan Begin pitocin per protocol Desires natural labor but will see how she feels as labor progresses Anticipate
[2022-04-27] MEDS: LACTATED RINGERS 1,000 ML 100 ML IV (08:57)
[2022-04-27] MEDS: OXYTOCIN PREMIX 30 UNIT/500 ML PLAST..BAG IV (08:58)
[2022-04-27] MEDS: ONDANSETRON 4 MG/2 ML INJ IV (12:30)
[2022-04-27] MEDS: fentaNYL 100 MCG/2 ML INJ 50 MCG IV (13:30)
[2022-04-27] MEDS: FENT 2MCG/ML BUPIV 0.125% EPI 200 MCG/100 ML PLAST..BAG 6 MCG EPIDURAL (14:10)
--- NOTE | 2022-04-27 14:22 | PM.OBPNLAB ---
Date/Time Date Patient Seen: 04/27/22 Time Patient Seen: 14:22 Pain Control Pain control: epidural Pelvic Exam Dilation (cm): 5 Effacement (%): 90 station: -1 Amniotic membrane status: Intact Contractions Contraction frequency (min): 3 Status status: Category l Heart Rate Baseline: 120 Monitor Accelerations: Present Monitor Decelerations: Early Monitor Variability: Moderate Assessment and Plan Assessment: active labor Plan: continuous present management Comments: 22 year old at 38+2 weeks s/p SROM at 1:30 AM with clear fluid, now in active labor and comfortable with epidural. Pitocin was turned off while waiting for the epidural. She is now denae every 3 minutes spontaneously so will only restart if needed. Continue expectant management, anticipate .
--- NOTE | 2022-04-27 15:21 | PM.OBPNLAB ---
Date/Time Date Patient Seen: 04/27/22 Time Patient Seen: 15:22 Pain Control Pain control: epidural Comments: She has felt slight pelvic pressure but not constant, otherwise comfortable with epidural. Pelvic Exam Dilation (cm): 8 Effacement (%): 100 station: 0 Amniotic membrane status: Ruptured (clear) Contractions Contraction frequency (min): 3 Contraction intensity: Mild Status status: Category ll Heart Rate Baseline: 120 Monitor Accelerations: Present Monitor Decelerations: Early, Late and Variable Assessment and Plan Assessment: active labor Plan: continuous present management Comments: 22 year old at 38+2 in active labor. SVE performed due to early vs late decelerations. She changed from 5/90/-1 to 8/100/0 in one hour. IVF bolus is going. Will continue to rotate positions often and monitor closely.
--- NOTE | 2022-04-27 18:41 | PM.OBPRVD ---
Labor & Delivery Delivery date: 04/27/22 Delivery augmentation: pitocin Delivery monitor: external FHT Route of delivery: L&D Laceration Description: Vaginal - 2nd Degree and Labial (right first degree) Delivery repair: chromic Anesthesia Type: Epidural Narrative: Patient is a 22-year-old at 38 weeks and 2 days gestation who gave on 04/27/22 at 5:54 p.m.. SUKHWINDER: 05/09/22 Hospital problems: 38 weeks of Spontaneous rupture of membranes hemorrhage STAGE I: Labor Patient presented after spontaneous rupture of membranes at home at 1:45 a.m. with clear fluid. After several hours she was not yet in labor so Pitocin started per protocol. She went on to receive an epidural. She was complete at 5:10 p.m.. When she was complete she was found to have thin meconium stained fluid. EFM category 1 and 2 throughout stage I due to intermittent variable decelerations. Stage I duration 5 hours and 10 minutes. Total rupture of membranes 16 hours. STAGE II: Delivery Patient was complete and pushed for 44 minutes. desired to assist with delivery and was gowned and gloved. She went on to deliver a vigorous male infant at 5:54 p.m.. Infant was vertex and FREDDIE. After delivery of the head, infant was found to have a tight double nuchal cord which he delivered through. The cord was reduced by Dr. Mojica after delivery. was placed on mother's abdomen by her . No resuscitation of the required beyond drying and stimulating. Apgars were 9 and 9. STAGE III: Placenta/Cord Placenta delivered at 5:58 p.m. after active management and appeared intact with a three-vessel cord. Pitocin bolus given after delivery of placenta. Fundus was firm. A second-degree vaginal laceration was repaired in the usual fashion with 3-0 Vicryl. A right first-degree labial laceration was also repaired. Both lacerations showed good hemostasis however she had persistent trickling from the vagina. When the nurse applied fundal massage the cervix was visible and found to be bleeding on the left edge though without an obvious tear. Dr. St came to the bedside and assisted with inspection of the cervix. By the time he was there, the cervix was no longer bleeding and appeared intact. Suspect bleeding was from a small separation of cervical mucosa without an actual tear. Uterine fundus was again checked and found to be firm. QBL: Obtained from the QBL drape, RN also weighed all laps. Total QBL 737 mL. Patient was given TXA after delivery due to hemorrhage. Vital signs remained stable throughout repair and aftercare without hypotension or tachycardia. Needle and sponge counts were correct. The vagina was inspected and no items were left in situ. Patient was doing well with Cole, her and at bedside. [place] Baby 1: gender: Male Presentation: vertex Position: Right Occiput Anterior Placenta delivery description: Spontaneous Cord Vessel Description: 3 Vessels and Nuchal Cord (x2, delivery through) score (1 min): 9 score (5 min): 9 weight: 6 lb 14.76 oz Plan for aftercare: Routine care
[2022-04-27] MEDS: TRANEXAMIC ACID 1,000 MG in SODIUM CHLORIDE 0.9% 100 ML 200 MG IV (19:09)
[2022-04-27] MEDS: DERMOPLAST SPRAY 20% 60 ML 1 SPRAY TOP (22:16)
[2022-04-28] MEDS: IBUPROFEN 600 MG TABLET PO ×4 (00:58→20:04)
[2022-04-28] MEDS: ACETAMINOPHEN 325 MG TABLET 650 MG PO ×4 (00:59→20:05)
[2022-04-28 06:46] LABS: Hematocrit 25.8 % (36-46); Hemoglobin 8.8 g/dL (12.0-16.0)
[2022-04-28 08:59] VITALS: TEMP 36.4
[2022-04-28] MEDS: DOCUSATE 100 MG CAPSULE PO (09:00)
--- NOTE | 2022-04-28 13:09 | PM.OBPN.1 ---
Subjective - OB Subjective Narrative: Patient had a syncopal episode last night when she was first up to the bathroom. She was not found to have significant vaginal bleeding. Vital signs were stable without hypotension or tachycardia. She felt much better after returning to bed and has not had further episodes. Today she is tolerating a diet and ambulating without difficulty. Pain controlled with ibuprofen though she has a significant amount of cramping with breast-feeding. She has voided. She has been breast and bottle feeding her due to pain with breast-feeding. Exam Vital Signs (past 8 hours): - 04/28/22 08:59 Temperature 97.5 F L Narrative Exam Narrative: Temperature 97.9? blood pressure 109/63 heart rate 74 respirations 18 General: Awake and alert, no acute distress. HEENT: NCAT, EOMI, moist oral mucosa CV: Regular rate and rhythm, no murmurs, rubs or gallops Lungs: CTAB, no wheezes, rales, or rhonchi Abdomen: Soft, nontender; bowel tones active; uterus firm 1 cm below umbilicus Extremities: Warm, no edema, 2+ pedal pulses bilaterally Objective Labs Result Diagrams: 04/28/22 06:29 Labs: Laboratory Results - last 24 hr 04/28/22 06:29 Hgb 8.8 L Hct 25.8 L Assessment & Plan Assessment and Plan (1) 38 weeks gestation of : Status: Acute (2) Spontaneous vaginal delivery: Status: Acute (3) hemorrhage: Status: Acute (4) Acute blood loss anemia: Status: Acute Plan day: 1 plan OB: routine care Comments: 2-year-old 1 day after spontaneous vaginal delivery complicated by hemorrhage from cervical bleeding. She received Pitocin and TXA with good hemostasis. Vital signs have remained stable without hypotension or tachycardia. Admission H&H was 11.5 and 34.5. H&H this morning was 8.8 and 25.8. Will give iron, no indication for blood transfusion. Anticipate home tomorrow. Time Spent With Patient Time: Total time spent is greater than 50% in coordination of care (as documented) at patient's floor/unit and/or counseling patient: Time with patient: 15-24 minutes
[2022-04-28 14:30] VITALS: TEMP 36.9
[2022-04-28 14:31] VITALS: TEMP 36.9
[2022-04-29] MEDS: ACETAMINOPHEN 325 MG TABLET 650 MG PO (04:25)
[2022-04-29] MEDS: IBUPROFEN 600 MG TABLET PO (04:26)
--- NOTE | 2022-04-29 07:42 | P.DS_ITS ---
Discharge Providers Provider Date of admission: 04/27/22 18:02 Discharge Date: 04/29/22 Primary care physician: Tami Esquivel MD Consults: 04/28/22 18:43 Consult to [employer] Routine Comment: Discharge provider: Keyanna Mojica DO Summary Hospital Course Date Patient Seen: 04/29/22 Time Patient Seen: 07:42 Diagnoses: Spontaneous vaginal delivery 38 weeks of hemorrhage Acute blood loss Hospital Course: 22-year-old G1 now P1 after spontaneous vaginal delivery at 38 weeks and 2 days. She presented after rupture of membranes at home without active labor. She went on to receive minimal Pitocin and progressed into active labor. She received an epidural and delivered a vigorous male infant. Immediately she had persistent trickling from the vagina despite a firm uterus and hemostatic lacerations after repair. On further inspection she was found to have slow bleeding from a separation of the cervical mucosa without actual tear. Dr. St was asked to come evaluate. By the time he arrived the bleeding had stopped. Total blood loss was 737 mL. She received Pitocin after delivery of the placenta. She was also given TXA with good control of bleeding. Vital signs were stable throughout without hypotension or tachycardia. Several hours after delivery when she got up to the bathroom she had a syncopal episode. She was not bleeding and vital signs were again stable. This did not recur. Remainder of course was uncomplicated. She was ambulating, voiding a nd passing flatus. Vaginal bleeding reportedly light and pain well controlled with ibuprofen. She was primarily her infant without issues. She is Rh negative and Rh positive. RhoGAM will be administered prior to discharge today. Advised patient to call for fevers, severe pain or bleeding through more than a pad an hour. Peripartum Data Delivery Method: Natural Vaginal Laceration Description: Vaginal - 2nd Degree and Labial 1: Gender: Male Disposition of : home Discharge Diagnosis (1) 38 weeks gestation of : Status: Acute (2) Spontaneous vaginal delivery: Status: Acute (3) hemorrhage: Status: Acute (4) Acute blood loss anemia: Status: Acute Time Spent with Patient Time attestation: Total time spent providing and/or coordinating discharge services: Objective Labs Result Diagrams: 04/28/22 06:29 Labs: Laboratory Results - last 24 hr 04/29/22 06:12 Maternal Bleed Negative Exam Vital Signs (past 8 hours): Temperature 97.0? blood pressure 125/81 heart rate 92 Narrative Exam Narrative: General: Awake and alert, no acute distress. HEENT: NCAT, EOMI, moist oral mucosa CV: Regular rate and rhythm, no murmurs, rubs or gallops Lungs: CTAB, no wheezes, rales, or rhonchi Abdomen: Soft, nontender; bowel tones active; uterus firm 1 cm below umbilicus Extremities: Warm, no edema, 2+ pedal pulses bilaterally Discharge Plan Discharge Plan Patient Disposition: Home Discharge orders & Medications Prescriptions: New ferrous sulfate 325 mg (65 mg iron) Tablet 325 mg PO DAILY Qty: 30 0RF docusate sodium 100 mg Capsule 100 mg PO DAILY Qty: 30 0RF ibuprofen 600 mg Tablet 600 mg PO Q6HR PRN (Reason: Pain, Mild (1-3)) Qty: 30 0RF Continued prenat.vits,ophelia,[id number] Tablet 1 tab PO DAILY Follow up/Referrals: Tami Esquivel MD [Primary Care Provider] - (You can follow up with Dr. Mojica. At the 2 week visit they will make your 6 week follow up appointment. If you have any questions/concerns or need to reschedule please call ) Keyanna Mojica DO [Physician] - 6 Weeks (They will make your follow up appointment when you see Dr Mojica for the baby's appointment) Visit Report/Discharge Packet Stand Alone Forms: Discharge: Care Visit Report Forms: Patient Portal/API, Stroke Signs & Symptoms Discharge Data Primary Care Provider: Tami Esquivel Discharges patient from system. Discharge Date/Time: 04/29/22 11:00
[2022-04-29] MEDS: FERROUS SULFATE 325 MG TABLET PO (08:01)
[2022-04-29] MEDS: RHO(D) IMMUNE GLOBULIN 1,500 UNIT SYRINGE 1500 UNIT IM (08:01)
[2022-04-29] MEDS: PRENATAL VIT,CALC/IRON/FOLIC 1 TABLET 1 TAB PO (08:02)
[2022-04-29] MEDS: DOCUSATE 100 MG CAPSULE PO (08:02)
[2022-04-29] MEDS: LANOLIN OINT 7 GM 1 APPLIC TOP (08:02)
[2022-04-29 09:51] VITALS: BP 126/83; PULSE 81; RESP 14; TEMP 36.1
== END 2022-04-29 11:00 | disposition home or self-care (01) | DRG 806 ==
PROVIDERS: Obstetrics & Gynecology; Admitting Provider Family Medicine; PCP Student in an Organized Health Care Education/Training Program; Referring Provider Nurse Practitioner Obstetrics & Gynecology; Visit Provider Family Medicine
DX: O42.02 Full-term premature rupture of membranes, onset of labor within 24 hours of rupture (principal); D62 Acute posthemorrhagic anemia; Z37.0 Single live birth; O90.81 Anemia of the puerperium; Z3A.38 38 weeks gestation of pregnancy; O70.0 First degree perineal laceration during delivery; O70.1 Second degree perineal laceration during delivery; O76 Abnormality in fetal heart rate and rhythm complicating labor and delivery; O69.81X0 Labor and delivery complicated by cord around neck, without compression, not applicable or unspecified; Z67.41 Type O blood, Rh negative; Z20.822 Contact with and (suspected) exposure to COVID-19
CPT/HCPCS: 36415; 59050; 59400; 85014; 85018; 85025; 85461; 86850; 86900; 86901; 87635; C9803; G0378; G0379; J2405; J2590; J2790; J3010